=== PATIENT | female | born 1980 | race African-American/Black ===

== ENCOUNTER 2017-08-01 01:14 | Emergency (ER) | payer SELFPAY ==
[~2017-08-01] VITALS: Ht 175.3 cm; Wt 90.7 kg
[2017-08-01 01:23] VITALS: BP_SYST 121
[2017-08-01 01:45] VITALS: BP_SYST 121
== END 2017-08-01 01:45 | disposition home or self-care (01) ==
LOC: SED 01:14
DX: L03.113 Cellulitis of right upper limb (principal); Z88.6 Allergy status to analgesic agent
CPT/HCPCS: 99283

== ENCOUNTER 2017-09-07 21:36 | Emergency (ER) | payer MEDICAID ==
[~2017-09-07] VITALS: Ht 167.6 cm; Wt 81.6 kg
--- NOTE | 2017-09-07 21:38 | NUR ---
Patient to ER bed 03 to gown for evaluation. Side rails up.
[2017-09-07 21:40] VITALS: BP_SYST 139
--- NOTE | 2017-09-07 21:40 | NUR ---
Pt AAOx4 ambulated into ED c/o 10/04 pain to L shoulder x 1 week with exacerbation today. Pt has hx of dislocated shoulder and is concerned she has dislocated it again. Pt denies trauma, but often plays horeshoe and cracks her arms frequently. Skin dry and warm, breathing even and unlabored. Visitor at bedside. Will continue to monitor. Addendum: 09/07/17 at 2157 by [email or web address] Limited ROM to L arm; pt unable to lift arm above chest, or cross arm to R side.
--- NOTE | 2017-09-07 21:54 | NUR ---
ER Dr. Lewis at bedside examining patient.
[2017-09-07] MEDS ORDERED: KETOROLAC TROMETHAMINE 60 MG/2 ML VIAL IM ONE (22:00)
--- NOTE | 2017-09-07 22:02 | NUR ---
Pt ambulated to radiology with steady gait
--- NOTE | 2017-09-07 22:14 | NUR ---
Medication administered. Pt tolerated well. No adverse reactions noted.
--- NOTE | 2017-09-07 22:46 | NUR ---
Patient given written and verbal discharge instructions and verbalizes understanding. ER MD Lewis discussed with patient the results and treatment provided. Patient in stable condition. ID arm band removed. Rx of Motrin given. Patient educated on pain management and to follow up with PMD. Pain Scale 0. Opportunity for questions provided and answered. Medication side effect fact sheet provided.
[2017-09-07 22:48] VITALS: BP_SYST 123
== END 2017-09-07 22:46 | disposition home or self-care (01) ==
LOC: SED 21:36
DX: S43.402A Unspecified sprain of left shoulder joint, initial encounter (principal); R03.0 Elevated blood-pressure reading, without diagnosis of hypertension; Z88.6 Allergy status to analgesic agent; Y93.89 Activity, other specified; X58.XXXA Exposure to other specified factors, initial encounter; Y92.89 Other specified places as the place of occurrence of the external cause; Y99.8 Other external cause status
CPT/HCPCS: 73030; 96372; 99284; J1885

== ENCOUNTER 2017-09-16 22:45 | Emergency (ER) | payer MEDICAID ==
[~2017-09-16] VITALS: Ht 170.2 cm; Wt 68.0 kg
[2017-09-16 23:00] VITALS: BP_SYST 139
--- NOTE | 2017-09-16 23:05 | NUR ---
Patient to ER bed 4 to gown for evaluation. Side rails up. Report given to Frank GAMA .
--- NOTE | 2017-09-16 23:10 | NUR ---
Patient to ER via triage with c/o bug bites to legs x 1 day, patient denies pain, does c/o itching. Patient is awake, alert and oriented in no acute distress, vital signs stable, respirations even and unlabored, skin warm and dry to touch. Awaiting evaluation by ER MD, will continue to observe and assess.
--- NOTE | 2017-09-16 23:40 | NUR ---
Dr Callahan at bedside to evaluate patient.
[2017-09-17] VITALS: BP_SYST 130
--- NOTE | 2017-09-17 | NUR ---
Patient given written and verbal discharge instructions and verbalizes understanding. ER MD discussed with patient the results and treatment provided. Patient in stable condition. ID arm band removed. Rx of Prenisone, Motrin, Benadryl given. Patient educated on pain management and to follow up with PMD. Pain Scale 0. Opportunity for questions provided and answered. Medication side effect fact sheet provided. Patient left ER ambulating with slow, steady gait in no acute distress with friend at her side. No questions related to aftercare.
== END 2017-09-17 | disposition home or self-care (01) ==
LOC: SED 22:45
DX: S80.862A Insect bite (nonvenomous), left lower leg, initial encounter (principal); S80.861A Insect bite (nonvenomous), right lower leg, initial encounter; R21 Rash and other nonspecific skin eruption; R03.0 Elevated blood-pressure reading, without diagnosis of hypertension; F17.210 Nicotine dependence, cigarettes, uncomplicated; Z88.6 Allergy status to analgesic agent; W57.XXXA Bitten or stung by nonvenomous insect and other nonvenomous arthropods, initial encounter; Y93.89 Activity, other specified; Y92.89 Other specified places as the place of occurrence of the external cause; Y99.8 Other external cause status
CPT/HCPCS: 99283

== ENCOUNTER 2018-02-11 20:02 | Emergency (ER) | payer MEDICAID ==
[~2018-02-11] VITALS: Ht 175.3 cm; Wt 81.6 kg
[2018-02-11 20:08] VITALS: BP_SYST 100
[2018-02-11] MEDS ORDERED: OSELTAMIVIR PHOSPHATE 75 MG CAPSULE PO ONE (21:30)
== END 2018-02-11 21:15 | disposition left against medical advice (07) ==
LOC: SED 20:02
DX: J09.X2 Influenza due to identified novel influenza A virus with other respiratory manifestations (principal); F17.210 Nicotine dependence, cigarettes, uncomplicated; Z88.6 Allergy status to analgesic agent; Z91.040 Latex allergy status
CPT/HCPCS: 36415; 86710; 99284

== ENCOUNTER 2018-04-08 14:21 | Emergency (ER) | payer MEDICAID ==
[~2018-04-08] VITALS: Ht 175.3 cm; Wt 83.5 kg
[2018-04-08 14:31] VITALS: BP_SYST 140
[2018-04-08] MEDS ORDERED: NACL 0.9% 1,000 ML IV ONE (14:39)
--- NOTE | 2018-04-08 14:39 | NUR ---
Patient to ER bed 6 to gown for evaluation. Side rails up. Assumed care of patient.
--- NOTE | 2018-04-08 14:40 | NUR ---
PT STATES MULTIPLE OPEN WOUND AREAS TO BILATERAL FOREARMS ARE FROM SHOOTING UP DRUGS, DIFFERENT STAGES OF HEALING. PT STATES MINIMAL CHEST PAINS 2/10. MID CHEST.
[2018-04-08] MEDS ORDERED: MORPHINE 4 MG/ML INJ. SYRINGE IVP ONE (14:45)
[2018-04-08] MEDS ORDERED: ASPIRIN 81 MG TAB.CHEW PO ONE (14:45)
[2018-04-08] MEDS ORDERED: ASPIRIN 325 MG TABLET PO ONE (14:45)
--- NOTE | 2018-04-08 14:45 | NUR ---
DR BURKETT AT BEDSIDE FOR EVALUATION
--- NOTE | 2018-04-08 15:01 | NUR ---
ATTEMPTED MANY TIMES FOR IV ACCESS, UNSUCCESSFUL. CHARGE NURSE JOSE ANGEL ATTEMPTED AND STILL UNSUCCESSFUL. DR BURKETT AWARE AND WILL CHANGE ORDERS
[2018-04-08] MEDS ORDERED: MORPHINE 4 MG/ML INJ. SYRINGE IM ONE (15:15)
[2018-04-08 15:20] LABS: BASOPHILS % (AUTO) 0.5 % (0.0-2.0); EOSINOPHILS # (AUTO) 0.1 K/uL (0.0-0.4); EOSINOPHILS % (AUTO) 1.4 % (0.0-4.0); HEMATOCRIT 36.5 % (36-48); HEMOGLOBIN 11.4 g/dL (12.0-16.0); LYMPHOCYTES # (AUTO) 1.9 K/uL (1.0-5.5); LYMPHOCYTES % (AUTO) 32.5 % (20.5-51.5); MEAN CORPUSCULAR HEMOGLOBIN 26 pg (27-31); MEAN CORPUSCULAR HGB CONC 31 % (32-36); MEAN CORPUSCULAR VOLUME 82 fL (79.0-98.0); MONOCYTES # (AUTO) 0.3 K/uL (0.0-1.0); MONOCYTES % (AUTO) 5.5 % (1.7-9.3); NEUTROPHILS # (AUTO) 3.7 K/uL (1.8-7.7); NEUTROPHILS % (AUTO) 60.1 % (40.0-70.0); PLATELET COUNT (AUTO) 287 K/uL (130-430); RED BLOOD CELL COUNT(AUTO) 4.46 MIL/uL (4.2-6.2); RED CELL DISTRIBUTION WIDTH 13.5 % (9.0-15.0)
[2018-04-08 15:28] LABS: CALCIUM 9.5 mg/dL (8.4-11.0); CREATININE 0.91 mg/dL (0.55-1.30); POTASSIUM 3.7 mmol/L (3.5-5.1)
[2018-04-08 15:31] LABS: INR 0.9 (0.8-1.2); PROTHROMBIN TIME 9.3 SECS (9.5-12.5)
[2018-04-08 15:32] LABS: ALBUMIN 3.8 g/dL (3.4-4.8); TOTAL BILIRUBIN 0.2 mg/dL (0.0-1.0)
--- NOTE | 2018-04-08 15:50 | NUR ---
SPOUSE AT BEDSIDE FOR SUPPORT. DENIES ANY CHEST PAIN AT THIS TIME.
[2018-04-08 15:59] LABS: CKMB RELATIVE INDEX 0.5 (0.0-2.9); CREATINE KINASE MB 1.3 ng/mL (0-3.6)
--- NOTE | 2018-04-08 16:10 | NUR ---
DR BURKETT AT BEDSIDE FOR RE-EVALUATION
[2018-04-08 16:31] VITALS: BP_SYST 131
--- NOTE | 2018-04-08 16:32 | NUR ---
Patient given written and verbal discharge instructions and verbalizes understanding. ER MD discussed with patient the results and treatment provided. Patient in stable condition. ID arm band removed. Rx of BACITRACIN,ALBUTEROL,TYLENOL given. Patient educated on pain management and to follow up with PMD. Pain Scale 0/10. Opportunity for questions provided and answered. Medication side effect fact sheet provided.
== END 2018-04-08 16:31 | disposition home or self-care (01) ==
LOC: SED 14:21
DX: F15.10 Other stimulant abuse, uncomplicated (principal); L02.91 Cutaneous abscess, unspecified; J45.909 Unspecified asthma, uncomplicated; F17.200 Nicotine dependence, unspecified, uncomplicated; Z71.6 Tobacco abuse counseling; Z88.6 Allergy status to analgesic agent; Z91.040 Latex allergy status
CPT/HCPCS: 36415; 71045; 80053; 82550; 82553; 83605; 83690; 84484; 85025; 85610; 85730; 87040; 93005; 96372; 99284; J2270

== ENCOUNTER 2018-12-20 15:26 | Emergency (ER) | payer MEDICAID ==
[~2018-12-20] VITALS: Ht 175.3 cm; Wt 83.5 kg
[2018-12-20 15:30] VITALS: BP_SYST 112
[2018-12-20] MEDS ORDERED: PIPERACILLIN/TAZO 4.5 GM in NS 100 ML IV ONE (18:00)
[2018-12-20 18:42] LABS: BASOPHILS % (AUTO) 0.3 % (0.0-2.0); EOSINOPHILS # (AUTO) 0.3 K/uL (0.0-0.4); EOSINOPHILS % (AUTO) 2.9 % (0.0-4.0); HEMATOCRIT 39.9 % (36-48); HEMOGLOBIN 12.8 g/dL (12.0-16.0); LYMPHOCYTES # (AUTO) 2.8 K/uL (1.0-5.5); LYMPHOCYTES % (AUTO) 29.3 % (20.5-51.5); MEAN CORPUSCULAR HEMOGLOBIN 27 pg (27-31); MEAN CORPUSCULAR HGB CONC 32 % (32-36); MEAN CORPUSCULAR VOLUME 83 fL (79.0-98.0); MONOCYTES # (AUTO) 0.5 K/uL (0.0-1.0); MONOCYTES % (AUTO) 5.2 % (1.7-9.3); NEUTROPHILS % (AUTO) 62.3 % (40.0-70.0); PLATELET COUNT (AUTO) 192 K/uL (130-430); RED BLOOD CELL COUNT(AUTO) 4.79 MIL/uL (4.2-6.2); RED CELL DISTRIBUTION WIDTH 14.3 % (9.0-15.0); WHITE BLOOD COUNT (AUTO) 9.6 K/uL (4.8-10.8)
[2018-12-20 18:55] LABS: CALCIUM 9.1 mg/dL (8.4-11.0); CREATININE 0.89 mg/dL (0.55-1.30)
[2018-12-20 18:56] LABS: POTASSIUM 3.8 mmol/L (3.5-5.1)
[2018-12-20 19:00] LABS: ALBUMIN 3.8 g/dL (3.4-4.8); TOTAL BILIRUBIN 0.3 mg/dL (0.0-1.0)
[2018-12-20] MEDS ORDERED: PIPERACILLIN/TAZOBACTAM 4.5 GM/VIAL (ZOSYN) IV ONE (19:16)
[2018-12-20 20:23] VITALS: BP_SYST 119
== END 2018-12-20 20:23 | disposition home or self-care (01) ==
LOC: SED 15:26
DX: H60.91 Unspecified otitis externa, right ear (principal); F15.90 Other stimulant use, unspecified, uncomplicated; J45.909 Unspecified asthma, uncomplicated; Z91.040 Latex allergy status
CPT/HCPCS: 36415; 70487; 80053; 81025; 85025; 87040; 96365; 99284; J2543

== ENCOUNTER 2019-08-03 14:34 | Emergency (ER) | payer MEDICAID ==
[~2019-08-03] VITALS: Ht 175.3 cm; Wt 90.7 kg
[2019-08-03 14:36] VITALS: BP_SYST 122
--- NOTE | 2019-08-03 14:44 | NUR ---
Patient to ER bed 3 to gown for evaluation. Side rails up. Report given to DAVID GAMA .
--- NOTE | 2019-08-03 14:45 | NUR ---
Pt walked in to ER w/ c/o right leg and arm pain and tightness x3 days. Reports hx of asthma, SOB on exhertion. V/S stable, afebrile. Will continue to monitor.
--- NOTE | 2019-08-03 14:50 | NUR ---
ER Dr. Callahan at bedside examining patient.
--- NOTE | 2019-08-03 14:55 | NUR ---
Medicated with toradol as ordered.
[2019-08-03] MEDS ORDERED: KETOROLAC TROMETHAMINE 60 MG/2 ML VIAL IM ONE (15:15)
--- NOTE | 2019-08-03 15:45 | NUR ---
Patient given written and verbal discharge instructions and verbalizes understanding. ER MD discussed with patient the results and treatment provided. Patient in stable condition. ID arm band removed. Rx of Motrin and Albuterol given. Patient educated on pain management and to follow up with PMD. Pain Scale 2. Opportunity for questions provided and answered. Medication side effect fact sheet provided.
[2019-08-03 15:48] VITALS: BP_SYST 122
== END 2019-08-03 15:45 | disposition home or self-care (01) ==
LOC: SED 14:34
DX: M79.604 Pain in right leg (principal); J45.909 Unspecified asthma, uncomplicated; F17.200 Nicotine dependence, unspecified, uncomplicated; Z91.040 Latex allergy status
CPT/HCPCS: 96372; 99283; J1885

== ENCOUNTER 2020-03-22 17:39 | Emergency (ER) | payer MEDICAID, SELFPAY ==
[~2020-03-22] VITALS: Ht 167.6 cm; Wt 74.8 kg
[2020-03-22 17:45] VITALS: BP_SYST 119
--- NOTE | 2020-03-22 18:21 | NUR ---
TRIAGED AT TENT
--- NOTE | 2020-03-22 18:30 | NUR ---
Patient to ER Tent Chair to gown for evaluation. Side rails up.
--- NOTE | 2020-03-22 18:48 | NUR ---
Dr. Oseguera at chair side for pt jaymieal
--- NOTE | 2020-03-22 18:49 | NUR ---
Pt BIB family to ED seeking evaluation of a 3-day history of diffuse body aches associated with diarrhea and decreased appetite. No relieving or exacerbating factors. She denies any fever, chills, shortness of breath, chest pain, sick contacts, or recent travel.
[2020-03-22 19:25] VITALS: BP_SYST 119
--- NOTE | 2020-03-22 19:25 | NUR ---
Patient given written and verbal discharge instructions and verbalizes understanding. ER MD discussed with patient the results and treatment provided. Patient in stable condition. ID arm band removed. Patient educated on pain management and to follow up with PMD. Pain Scale 0/10 Opportunity for questions provided and answered.
== END 2020-03-22 19:25 | disposition home or self-care (01) ==
LOC: SED 17:39
DX: A08.4 Viral intestinal infection, unspecified (principal); J45.909 Unspecified asthma, uncomplicated; Z91.040 Latex allergy status; Z20.828 Contact with and (suspected) exposure to other viral communicable diseases
CPT/HCPCS: 36415; 99283

== ENCOUNTER 2020-03-25 18:01 | Emergency (ER) | payer MEDICAID, SELFPAY ==
[~2020-03-25] VITALS: Ht 175.3 cm; Wt 90.7 kg
[2020-03-25 18:22] VITALS: BP_SYST 141
[2020-03-25 21:02] VITALS: BP_SYST 121
== END 2020-03-25 20:54 | disposition home or self-care (01) ==
LOC: SED 18:01
DX: R10.30 Lower abdominal pain, unspecified (principal); F17.200 Nicotine dependence, unspecified, uncomplicated; Z71.6 Tobacco abuse counseling
CPT/HCPCS: 81002; 81025; 99283

== ENCOUNTER 2020-04-01 16:55 | Emergency (ER) | payer MEDICAID, SELFPAY ==
[~2020-04-01] VITALS: Ht 175.3 cm; Wt 90.7 kg
[2020-04-01 17:10] VITALS: BP_SYST 138
--- NOTE | 2020-04-01 17:10 | NUR ---
PT TRIAGED TO TENT FOR EVALUATION
--- NOTE | 2020-04-01 19:10 | NUR ---
DR. MEZA TO [facility] FOR EVALUATION
[2020-04-01] MEDS ORDERED: IBUPROFEN 600 MG TABLET PO ONE (19:15)
[2020-04-01] MEDS ORDERED: HYDROcodone/ACETAMIN 5-325 MG TAB (NORCO/ VICODIN) PO ONE (19:15)
[2020-04-01 19:39] VITALS: BP_SYST 138
--- NOTE | 2020-04-01 19:39 | NUR ---
Patient given written and verbal discharge instructions and verbalizes understanding. DR. NATHALY YARBROUGH discussed with patient the results and treatment provided. Patient in stable condition. ID arm band removed. Patient educated on pain management and to follow up with PMD. Pain Scale 2/10. Opportunity for questions provided and answered.
== END 2020-04-01 19:39 | disposition home or self-care (01) ==
LOC: SED 16:55
DX: K02.9 Dental caries, unspecified (principal); J45.909 Unspecified asthma, uncomplicated; Z91.040 Latex allergy status
CPT/HCPCS: 99283

== ENCOUNTER 2020-06-17 15:34 | Emergency (ER) | payer MEDICAID, SELFPAY ==
[~2020-06-17] VITALS: Ht 175.3 cm; Wt 90.7 kg
[2020-06-17 15:34] VITALS: BP_SYST 110
--- NOTE | 2020-06-17 15:34 | NUR ---
Placed in room 04 . Placed on abe teacher, blood pressure machine and pulse oximeter. To gown for exam. Side rails up.
--- NOTE | 2020-06-17 15:37 | NUR ---
PATIENT BROUGHT IN FROM [facility] IN [facility], AOX 4 COMPLAINING OF CONSTANT SHARP SUBSTERNAL CHEST PAIN RADIATING TO RIGHT SHOULDER STARTING AT 0400. PATIENT REPORTS SHE WAS SLEEPING. PATIENT REPORTS HX OF ASTHMA AND IRREGULAR HEARTBEAT. PAIN 9/10. DENIES ANY SOB, NAUSEA, VOMITING, ABDOMINAL PAIN. NO OTHER COMPLAINTS.
--- NOTE | 2020-06-17 15:45 | NUR ---
EKG performed at by NATAN Barroso. Physician given copy of EKG for review.
--- NOTE | 2020-06-17 15:50 | NUR ---
# 22 gauge angiocath placed rt hand. Use of asceptic technique. Opsite placed over site. Blood return noted. Blood for lab drawn from site. Flushed with 10 cc of normal saline. No evidence of infiltration noted. Patient tolerated well.
[2020-06-17 16:08] LABS: BASOPHILS % (AUTO) 0.4 % (0.0-2.0); EOSINOPHILS # (AUTO) 0.2 K/uL (0.0-0.4); EOSINOPHILS % (AUTO) 2.9 % (0.0-4.0); HEMATOCRIT 37.5 % (36-48); HEMOGLOBIN 12.2 g/dL (12.0-16.0); LYMPHOCYTES % (AUTO) 32.4 % (20.5-51.5); MEAN CORPUSCULAR HEMOGLOBIN 27 pg (27-31); MEAN CORPUSCULAR HGB CONC 33 % (32-36); MEAN CORPUSCULAR VOLUME 82 fL (79.0-98.0); MONOCYTES # (AUTO) 0.4 K/uL (0.0-1.0); MONOCYTES % (AUTO) 6.3 % (1.7-9.3); NEUTROPHILS # (AUTO) 3.5 K/uL (1.8-7.7); PLATELET COUNT (AUTO) 260 K/uL (130-430); RED BLOOD CELL COUNT(AUTO) 4.57 MIL/uL (4.2-6.2); RED CELL DISTRIBUTION WIDTH 14.1 % (9.0-15.0); WHITE BLOOD COUNT (AUTO) 6.1 K/uL (4.8-10.8)
--- NOTE | 2020-06-17 16:08 | NUR ---
RADIOLOGY AT BEDSIDE FOR CHEST XRAY
[2020-06-17 16:21] LABS: CALCIUM 8.8 mg/dL (8.4-11.0); CREATININE 1.11 mg/dL (0.55-1.30); POTASSIUM 3.8 mmol/L (3.5-5.1)
[2020-06-17 16:27] LABS: ALBUMIN 3.7 g/dL (3.4-4.8); TOTAL BILIRUBIN 0.4 mg/dL (0.0-1.0)
--- NOTE | 2020-06-17 16:29 | NUR ---
PATIENT RESTING IN [place]. CHEST RISE AND FALL NOTED. WILL CONTINUE TO MONITOR.
--- NOTE | 2020-06-17 18:38 | NUR ---
# 20 gauge angiocath placed to LAC. Use of asceptic technique. Opsite placed over site. Blood return noted. Flushed with 10 cc of normal saline. No evidence of infiltration noted. Patient tolerated well.
--- NOTE | 2020-06-17 18:45 | NUR ---
CT CONSENT SIGNED BY PATIENT AT BEDSIDE.
[2020-06-17] MEDS ORDERED: IOHEXOL 350 mgI/mL, 150 ML INFUS..BTL IV ONE (18:59)
--- NOTE | 2020-06-17 18:59 | NUR ---
report given to NATAN BRENNER FOR CONTINUATION OF CARE
--- NOTE | 2020-06-17 19:21 | NUR ---
Patient came back from CT scan with contrast via wheelchair , with RT and RN.
[2020-06-17] MEDS ORDERED: IBUP-1969 PO (19:27)
[2020-06-17] MEDS ORDERED: CLOT15CR5 TP (19:34)
[2020-06-17 19:38] VITALS: BP_SYST 110
--- NOTE | 2020-06-17 19:38 | NUR ---
Patient given written and verbal discharge instructions and verbalizes understanding. ER MD discussed with patient the results and treatment provided. Patient in stable condition. ID arm band removed. IV catheter removed intact and dressing applied, no active bleeding. Rx of Ibuprofen and cream given. Patient educated on pain management and to follow up with PMD. Pain Scale 1/10. Opportunity for questions provided and answered. Medication side effect fact sheet provided.
== END 2020-06-17 19:38 | disposition home or self-care (01) ==
LOC: SED 15:34
DX: R07.89 Other chest pain (principal); J45.909 Unspecified asthma, uncomplicated; Z91.040 Latex allergy status
CPT/HCPCS: 36415; 71045; 71275; 76376; 80053; 84484; 84703; 85025; 85379; 85610; 93005; 99285; Q9967

== ENCOUNTER 2020-07-14 16:34 | Emergency (ER) | payer MEDICAID, SELFPAY ==
[~2020-07-14] VITALS: Ht 160 cm; Wt 89.4 kg
[~2020-07-14 16:34] MED LIST: CLOT15CR5 TP; IBUP-1969 PO
[2020-07-14 16:40] VITALS: BP_SYST 148
[2020-07-14 17:56] LABS: BASOPHILS % (AUTO) 0.5 % (0.0-2.0); EOSINOPHILS # (AUTO) 0.2 K/uL (0.0-0.4); EOSINOPHILS % (AUTO) 3.3 % (0.0-4.0); HEMATOCRIT 34.4 % (36-48); HEMOGLOBIN 11.3 g/dL (12.0-16.0); LYMPHOCYTES # (AUTO) 2.1 K/uL (1.0-5.5); LYMPHOCYTES % (AUTO) 37.7 % (20.5-51.5); MEAN CORPUSCULAR HEMOGLOBIN 27 pg (27-31); MEAN CORPUSCULAR HGB CONC 33 % (32-36); MEAN CORPUSCULAR VOLUME 81 fL (79.0-98.0); MONOCYTES # (AUTO) 0.4 K/uL (0.0-1.0); MONOCYTES % (AUTO) 7.2 % (1.7-9.3); NEUTROPHILS # (AUTO) 2.8 K/uL (1.8-7.7); NEUTROPHILS % (AUTO) 51.3 % (40.0-70.0); PLATELET COUNT (AUTO) 237 K/uL (130-430); RED BLOOD CELL COUNT(AUTO) 4.24 MIL/uL (4.2-6.2); RED CELL DISTRIBUTION WIDTH 14.6 % (9.0-15.0); WHITE BLOOD COUNT (AUTO) 5.4 K/uL (4.8-10.8)
[2020-07-14 17:59] LABS: ANION GAP 6 (5-15); CALCIUM 9.3 mg/dL (8.4-11.0); CHLORIDE 104 mmol/L (98-107); CREATININE 1.12 mg/dL (0.55-1.30); GLUCOSE 116 mg/dL (70-99); POTASSIUM 3.6 mmol/L (3.5-5.1); SODIUM SERUM 140 mmol/L (136-145); UREA NITROGEN, BLOOD 10 mg/dL (8-21)
[2020-07-14 18:01] LABS: GFR AFRICAN AMERICAN 69 mL/min (>90); PROTHROMBIN TIME 9.8 SECS (9.5-12.5)
[2020-07-14 18:06] LABS: ALANINE AMINOTRANSFERASE 31 U/L (12-78); ALBUMIN 3.4 g/dL (3.4-4.8); ASPARTATE AMINOTRANSFERASE 16 U/L (10-37); TOTAL BILIRUBIN 0.3 mg/dL (0.0-1.0)
[2020-07-14] MEDS ORDERED: ACETAMINOPHEN 325 MG TABLET PO ONE (18:15)
[2020-07-14 18:39] LABS: C-REACTIVE PROTEIN QUANT < 0.2 mg/dL (0-0.5)
[2020-07-14 19:21] VITALS: BP_SYST 121
== END 2020-07-14 19:21 | disposition home or self-care (01) ==
LOC: SED 16:34
DX: J98.01 Acute bronchospasm (principal); I50.9 Heart failure, unspecified; Z91.040 Latex allergy status; Z20.822 Contact with and (suspected) exposure to COVID-19
CPT/HCPCS: 36415; 71045; 80053; 83880; 84484; 85025; 85610-TC; 85730-TC; 86140; 93005; 99285

== ENCOUNTER 2020-07-27 15:38 | Emergency (ER) | payer MEDICAID, SELFPAY ==
[~2020-07-27] VITALS: Ht 175.3 cm; Wt 86.6 kg
[2020-07-27 15:47] VITALS: BP_SYST 129
[2020-07-27] MEDS ORDERED: HYDROcodone/ACETAMIN 5-325 MG TAB (NORCO/ VICODIN) ONE (17:28)
[2020-07-27] MEDS ORDERED: HYDR-3917 PO (17:29)
[2020-07-27] MEDS ORDERED: HYDROcodone/ACETAMIN 5-325 MG TAB (NORCO/ VICODIN) PO ONE (17:30)
[2020-07-27 17:49] VITALS: BP_SYST 134
== END 2020-07-27 17:49 | disposition home or self-care (01) ==
LOC: SED 15:38
DX: N60.12 Diffuse cystic mastopathy of left breast (principal); J45.909 Unspecified asthma, uncomplicated; I50.9 Heart failure, unspecified; Z91.040 Latex allergy status
CPT/HCPCS: 99283

== ENCOUNTER 2020-10-12 20:18 | Emergency (ER) | payer MEDICAID ==
[~2020-10-12] VITALS: Ht 177.8 cm; Wt 87.1 kg
[~2020-10-12 20:18] MED LIST changes: +HYDR-3917 PO
[2020-10-12 20:28] VITALS: BP_SYST 134
--- NOTE | 2020-10-12 20:28 | NUR ---
Patient to ER bed 06 to gown for evaluation. Side rails up.
--- NOTE | 2020-10-12 20:35 | NUR ---
Dr. Vila bedside for pt eval
--- NOTE | 2020-10-12 21:00 | NUR ---
Pt BIB family to ED C/O swelling lower extremities x 1 month No other complaints noted VSS no s/s of acute distress Resting on gurney rails up
[2020-10-12 21:44] LABS: BILIRUBIN,URINE NEGATIVE (NEGATIVE); BLOOD, URINE NEGATIVE (NEGATIVE); CLARITY/URINE SL CLOUDY (CLEAR); COLOR,URINE YELLOW (YELLOW); GLUCOSE,URINE NEGATIVE (NEGATIVE); KETONES,URINE TRACE (NEGATIVE); LEUKOCYTE ESTERASE ,URINE NEGATIVE (NEGATIVE); NITRITE, URINE NEGATIVE (NEGATIVE); PROTEIN URINE TRACE (NEGATIVE)
--- NOTE | 2020-10-12 22:00 | NUR ---
VSS no s/s of acute distress Resting on gurney rails up
[2020-10-12 22:07] LABS: BACTERIA,URINE MODERATE /HPF (None Seen); RBC,URINE 0-3 /HPF (0-3)
[2020-10-12 22:08] LABS: CALCIUM OXALATE CRYSTALS,UR 0-10 /HPF (None Seen); MUCUS,URINE 3+ /LPF (None Seen)
[2020-10-12] MEDS ORDERED: CLOT24CR2 TP (22:41)
[2020-10-12] MEDS ORDERED: CLOTRIMAZOLE 1% TOPICAL CREAM 15 GM TP ONE (22:45)
[2020-10-12 22:48] VITALS: BP_SYST 134
--- NOTE | 2020-10-12 22:48 | NUR ---
Patient given written and verbal discharge instructions and verbalizes understanding. ER MD discussed with patient the results and treatment provided. Patient in stable condition. ID arm band removed. Rx of Lotrimin given. Patient educated on pain management and to follow up with PMD. Pain Scale 0/10 Opportunity for questions provided and answered. Medication side effect fact sheet provided.
== END 2020-10-12 22:48 | disposition home or self-care (01) ==
LOC: SED 20:18
DX: B35.3 Tinea pedis (principal); I49.9 Cardiac arrhythmia, unspecified
CPT/HCPCS: 81000; 87086; 93005; 99284

== ENCOUNTER 2020-12-10 15:17 | Emergency (ER) | payer MEDICAID, SELFPAY ==
[~2020-12-10] VITALS: Ht 175.3 cm; Wt 93.0 kg
--- NOTE | 2020-12-10 15:20 | NUR ---
Patient to ER bed 08 to gown for evaluation. Side rails up.
[2020-12-10 15:21] VITALS: BP_SYST 155
--- NOTE | 2020-12-10 15:22 | NUR ---
Pt brought by self, A&Ox4, pt presents to ER with bilateral swelling/pain on feet x 1 week , pt ambulatory, skin pink and warm, cap refill <3, VSS, respiraitons even and unlabored, pt denies chest pain or SOB, will cont to monitor.
[2020-12-10 15:59] LABS: HEMOGLOBIN 11.4 g/dL (12.0-16.0)
[2020-12-10 16:09] LABS: CALCIUM 8.9 mg/dL (8.4-11.0); CREATININE 1.18 mg/dL (0.55-1.30); POTASSIUM 4.1 mmol/L (3.5-5.1)
[2020-12-10 16:13] LABS: INR 0.9 (0.8-1.2)
[2020-12-10 16:20] LABS: ALBUMIN 3.6 g/dL (3.4-4.8); TOTAL BILIRUBIN 0.2 mg/dL (0.0-1.0)
--- NOTE | 2020-12-10 16:20 | NUR ---
Dr Richey evaluating patient at bedside
[2020-12-10 16:25] LABS: BASOPHILS % (AUTO) 0.5 % (0.0-2.0); EOSINOPHILS # (AUTO) 0.2 K/uL (0.0-0.4); EOSINOPHILS % (AUTO) 2.8 % (0.0-4.0); HEMATOCRIT 35.5 % (36-48); MEAN CORPUSCULAR HEMOGLOBIN 27 pg (27-31); MEAN CORPUSCULAR HGB CONC 32 % (32-36); MEAN CORPUSCULAR VOLUME 83 fL (79.0-98.0); MONOCYTES # (AUTO) 0.4 K/uL (0.0-1.0); MONOCYTES % (AUTO) 6.1 % (1.7-9.3); NEUTROPHILS # (AUTO) 3.8 K/uL (1.8-7.7); NEUTROPHILS % (AUTO) 59.6 % (40.0-70.0); PLATELET COUNT (AUTO) 220 K/uL (130-430); RED CELL DISTRIBUTION WIDTH 14.5 % (9.0-15.0); WHITE BLOOD COUNT (AUTO) 6.3 K/uL (4.8-10.8)
[2020-12-10 17:20] VITALS: BP_SYST 133
--- NOTE | 2020-12-10 18:16 | NUR ---
PT ELOPED, LEFT WITHOUT DISCHARGE PAPERS
--- NOTE | 2020-12-10 18:20 | NUR ---
Discharge paper printed by Dr Sherman after pt elopement.
== END 2020-12-10 18:16 | disposition left against medical advice (07) ==
LOC: SED 15:17
DX: R60.0 Localized edema (principal); J45.909 Unspecified asthma, uncomplicated; Z91.040 Latex allergy status
CPT/HCPCS: 36415; 71045; 80053; 83880; 84484; 84702; 85025; 85379; 85610-TC; 85730-TC; 93005; 93970; 99285

== ENCOUNTER 2022-07-19 16:28 | Emergency (ER) | payer MEDICAID ==
[~2022-07-19] VITALS: Ht 175.3 cm; Wt 92.1 kg
[2022-07-19 16:46] VITALS: BP_SYST 122
[2022-07-19] MEDS ORDERED: IBUPROFEN 800 MG TABLET PO ONE (19:00)
[2022-07-19] MEDS ORDERED: HYDROcodone/ACETAMIN 10-325 MG TAB PO ONE (19:00)
[2022-07-19 21:11] VITALS: BP_SYST 120
== END 2022-07-19 21:11 | disposition home or self-care (01) ==
LOC: SED 16:28
DX: M54.6 Pain in thoracic spine (principal); G89.29 Other chronic pain; R07.9 Chest pain, unspecified; R05.9 Cough, unspecified; Z91.040 Latex allergy status; J45.909 Unspecified asthma, uncomplicated; Z79.899 Other long term (current) drug therapy
CPT/HCPCS: 71045; 72128; 76376; 81025; 99284

== ENCOUNTER 2023-09-05 22:47 | Emergency (ER) | payer MEDICAID ==
[~2023-09-05] VITALS: Ht 175.3 cm; Wt 90.7 kg
[2023-09-05 22:54] VITALS: BP_SYST 169; PULSE 77; RESP 18; TEMP 97; O2SAT 98
[2023-09-06 00:02] LABS: BILIRUBIN,URINE NEGATIVE (NEGATIVE); BLOOD, URINE NEGATIVE (NEGATIVE); COLOR,URINE YELLOW (YELLOW); GLUCOSE,URINE NEGATIVE (NEGATIVE); KETONES,URINE TRACE (NEGATIVE); LEUKOCYTE ESTERASE ,URINE NEGATIVE (NEGATIVE); NITRITE, URINE NEGATIVE (NEGATIVE); PROTEIN URINE 1+ (NEGATIVE)
[2023-09-06 00:12] LABS: CLARITY/URINE SLIGHTLY CLOUDY (CLEAR)
[2023-09-06 00:14] LABS: WBC,URINE 0-3 /HPF (0-3)
[2023-09-06 00:15] LABS: BACTERIA,URINE FEW /HPF (None Seen); CALCIUM OXALATE CRYSTALS,UR 0-10 /HPF (None Seen)
[2023-09-06 00:38] LABS: BASOPHILS % (AUTO) 0.4 % (0.0-2.0); EOSINOPHILS # (AUTO) 0.1 K/uL (0.0-0.4); EOSINOPHILS % (AUTO) 1.1 % (0.0-4.0); HEMATOCRIT 38.5 % (36-48); LYMPHOCYTES # (AUTO) 2.8 K/uL (1.0-5.5); LYMPHOCYTES % (AUTO) 34.7 % (20.5-51.5); MEAN CORPUSCULAR HEMOGLOBIN 29 pg (27-31); MEAN CORPUSCULAR HGB CONC 34 % (32-36); MEAN CORPUSCULAR VOLUME 85 fL (79.0-98.0); MONOCYTES # (AUTO) 0.4 K/uL (0.0-1.0); MONOCYTES % (AUTO) 5.5 % (1.7-9.3); NEUTROPHILS # (AUTO) 4.7 K/uL (1.8-7.7); NEUTROPHILS % (AUTO) 58.3 % (40.0-70.0); PLATELET COUNT (AUTO) 208 K/uL (130-430); RED BLOOD CELL COUNT(AUTO) 4.51 MIL/uL (4.2-6.2); RED CELL DISTRIBUTION WIDTH 14.2 % (9.0-15.0)
[2023-09-06 01:00] LABS: ALBUMIN 3.5 g/dL (3.4-4.8); CALCIUM 8.9 mg/dL (8.4-11.0); CREATININE 1.21 mg/dL (0.55-1.30); POTASSIUM 3.4 mmol/L (3.5-5.1); TOTAL BILIRUBIN 0.4 mg/dL (0.0-1.0); TOTAL PROTEIN, SERUM 7.4 g/dL (6.4-8.3)
[2023-09-06] MEDS: ONDANSETRON HCL 4 MG/2 ML VIAL IVP ONE (02:43)
[2023-09-06] MEDS: POTASSIUM CHLORIDE 20 MEQ TABLET.ER PO ONE (02:46)
[2023-09-06] MEDS: FUROSEMIDE 20 MG/2 ML VIAL IVP ONE (02:51)
[2023-09-06] MEDS: MORPHINE 4 MG INJ. 4 MG/ML VIAL IVP ONE (02:59)
[2023-09-06 04:04] VITALS: BP_SYST 118; PULSE 69; RESP 16; TEMP 98.6; O2SAT 95
== END 2023-09-06 04:04 | disposition home or self-care (01) ==
LOC: SED 22:47
DX: R10.31 Right lower quadrant pain (principal); R22.33 Localized swelling, mass and lump, upper limb, bilateral; R19.7 Diarrhea, unspecified; R30.0 Dysuria; E87.6 Hypokalemia; I10 Essential (primary) hypertension; J45.909 Unspecified asthma, uncomplicated; Z98.890 Other specified postprocedural states; Z91.040 Latex allergy status
CPT/HCPCS: 99285; 93970; 80053; 81001; 83880; 83690; 85025; 84484; 36415; 81025; 74176; 96374; 96375; 71045; 93005; J2405; J2270; 81000; 81015; J1940